=== PATIENT | female | born 1980 | race Caucasian/White ===

== ENCOUNTER → 2016-04-20 | Outpatient (CLI) | payer OTHER ==
[~2016-04-20] MED LIST: IOPAMIDOL (ISOVUE 370) 100 ML BTL IV ONE
--- NOTE | 2016-04-20 18:23 | DX ---
Hysterosalpingogram Clinical Indications: 35-year-old with infertility Technique: Following explanation of the procedure and informed consent, aseptic technique was used t o place a 5 [place] Hysterocath into the cervix. The catheter would not advance through the cervix and the balloon could not be inflated. The catheter was held in place with gentle forward pressure and S inografin was injected into the uterine cavity. Multiple spot images were obtained. The patient liza rated the procedure well. Findings: The uterus is retroverted. An equivocal filling defect in the uterus on early filling image s could be related to gravity artifact and uterine retroversion. The fallopian tubes fill normally. Contrast spills from both tubes into the peritoneal cavity. Fluoroscopy time is 1.4 minutes. Dose= 9.1 mGy. Impression: Equivocal filling defect in a retroverted uterus that could be related to artifact from g ravity, polyp or fibroid.
== END ==
LOC: FIMAGING 12:54
PROVIDERS: ATTEND Obstetrics & Gynecology
PROC: 0UH Female Reproductive System, Insertion (ICD-10-PCS; principal; 2016-04-20)
DX: N85.4 Malposition of uterus (principal); R93.8 Abnormal findings on diagnostic imaging of other specified body structures; N97.9 Female infertility, unspecified
CPT/HCPCS: Q9967

== ENCOUNTER → 2016-07-09 | Outpatient (CLI) | payer OTHER | LOC: FIMAGING 13:26 | PROVIDERS: ATTEND Obstetrics & Gynecology | DX: O09.521 Supervision of elderly multigravida, first trimester (principal); E03.9 Hypothyroidism, unspecified; Z3A.12 12 weeks gestation of pregnancy ==

== ENCOUNTER → 2016-08-31 | Outpatient (CLI) | payer OTHER | LOC: FIMAGING 08:02 | PROVIDERS: ATTEND Obstetrics & Gynecology | DX: Z36 Encounter for antenatal screening of mother (principal); O09.522 Supervision of elderly multigravida, second trimester; Z3A.20 20 weeks gestation of pregnancy ==

== ENCOUNTER 2016-12-21 07:20 | Observation (INO) | payer OTHER ==
--- NOTE | 2016-12-21 10:10 | SOAPPROG ---
SOAP Progress Note Assessment/Plan: Assessment: 36 yo G1 WF @ 36+ weeks gestation (EDC Jan 17 2017) with decreased movement. NST reactive. Plan: Reassurance given. Kick count instructions reviewed. DC home. RTC in 2 days for scheduled 36-week visit. 12/21/16 10:07 Subjective: Patient c/o decreased movement since yesterday evening. <10 kicks/hour. Objective: VSS FHR: NST is reactive, baseline 120s - Pending Discharge Pending Discharge Within 24 Hours: Yes Pending Discharge Date: 12/22/16 Pending Discharge Time: 11:00 Physical Exam - Physical Exam General Appearance: alert, no apparent distress EENT: PERRL/EOMI Neck: non-tender, supple Respiratory: lungs clear, normal breath sounds Cardiac/Chest: regular rate, rhythm Abdomen: non-tender, soft, other (gravid, S=D) Pelvic Exam: deferred Rectal: deferred Skin: normal color Extremities: normal range of motion, non-tender Neuro/Psych: alert, oriented x 3 ICD10 Worksheet Patient Problems: Problems Problem Status Onset Decreased movement Acute Third trimester fetus Acute Third trimester Acute - ICD10 Problem Qualifiers (1) Decreased movement (2) Third trimester fetus (3) Third trimester
== END 2016-12-21 08:35 | disposition home or self-care (01) ==
LOC: FLD 07:20
PROVIDERS: ADMIT Obstetrics & Gynecology Gynecology; ATTEND Obstetrics & Gynecology Gynecology
DX: O09.513 Supervision of elderly primigravida, third trimester (principal); O36.8130 Decreased fetal movements, third trimester, not applicable or unspecified; Z3A.36 36 weeks gestation of pregnancy
CPT/HCPCS: G0378

== ENCOUNTER 2017-01-23 14:26 | Inpatient (IN) | payer OTHER ==
[2017-01-23] MEDS ORDERED: LR 1,000 ML IV PRN (14:52)
[2017-01-23] MEDS ORDERED: OXYTOCIN 20 UNIT in LR 1,000 ML IV PRN (14:52)
[2017-01-23] MEDS ORDERED: EPSOM SALT 454 GM TP PRN (14:52)
[2017-01-23] MEDS ORDERED: OLIVE OIL 118 ML BTL MISC PRN (14:52)
[2017-01-23] MEDS ORDERED: TERBUTALINE SULFATE 1 MG/ML VIAL IV PRN (14:52)
--- NOTE | 2017-01-23 16:44 | OBPROG ---
Labor Progress Note Assessment/Plan: Assessment:cat 1 fhr irregular contractions q 20 minutes pain well managed pain level a 3-4 + amnisure + ferning +pooling clear fluid us to verify presentation cephalic speculum exam closed cervix noted continuous monitoring afebrile Plan:consulted dr. hood urbano on poc, cytotec q4h to start at 50mcg, discussed poc with patient and family ok with poc. patient would also like to do accupuncture in conjuction with cytotec ok with this plan 01/23/17 16:40 Subjective/Intrapartum Course: 01/23/17 16:39 patient states rom at 0200 am 01/23/2017. Clear fluid. Feeling irregular contractions. States feeling positive movement. No bleeding noted. Cat 1 fhr on monitor - SVE Dilation (cm): 0 Effacement (%): 0 Membranes: SROM Amniotic Fluid Color: Clear - Contraction Pattern Assessment Current Contraction Pattern: Irregular - FHR Assessment Quiroz FHR (bpm): 135 FHR Pattern Variability: Moderate FHR Category: 1 - Physical Exam General Appearance: WD/WN, alert, no apparent distress Respiratory: chest non-tender, lungs clear, normal breath sounds Cardiac/Chest: regular rate, rhythm Abdomen: normal bowel sounds Extremities: normal range of motion, Mora's sign (negative bilaterally) DTR- Lower Extremities: Knee (R): 1+, Knee (L): 1+ (no clonus) Skin: normal color, warm/dry Neuro/Psych: no motor/sensory deficits, alert, normal mood/affect, oriented x 3 Oxytocin Orders Assessment - Pre-Induction/Augmentation Assessment Gestational Age: 40 week(s) and 0 day(s) ICD10 Worksheet Patient Problems: Problems Problem Status Onset Decreased movement Acute Third trimester fetus Acute Third trimester Acute
[2017-01-23] MEDS ORDERED: MISOPROSTOL 100 MCG TAB PO ONE ×2 (16:45→17:00)
[2017-01-23 17:15] LABS: % IMMATURE GRANULYOCYTES 0.6 % (0.0-1.1); ABSOLUTE IMMATURE GRANULOCYTES 0.06 10^3/uL (0.00-0.10); ADD DIFF? NO; ADD MORPH? NO; ADD SCAN? NO; ATYPICAL LYMPHOCYTE FLAG 0 (0-99); FRAGMENT RBC FLAG 0 (0-99); HEMATOCRIT 39.2 % (38.0-47.0); HEMOGLOBIN 14.2 g/dL (12.6-16.3); LEFT SHIFT FLG 0 (0-99); LIPEMIA HEMOLYSIS FLAG 90 (0-99); MEAN CELL HEMOGLOBIN 33.3 pg (27.9-34.1); MEAN CELL HEMOGLOBIN CONCENTR. 36.2 g/dL (32.4-36.7); MEAN PLATELET VOLUME 9.8 fL (8.7-11.7); PLATELET CLUMPS FLAG 10 (0-99); PLATELET COUNT 236 10^3/uL (150-400); RED BLOOD CELL COUNT 4.26 10^6/uL (4.18-5.33); RED CELL DISTRIBUTION WIDTH 12.7 % (11.5-15.2)
--- NOTE | 2017-01-23 17:44 | GHP ---
[f rep st] HISTORY AND PHYSICAL DATE OF ADMISSION: 01/23/2017 HISTORY OF PRESENT ILLNESS: Patient is a 36-year-old 2, para 0, 0, A1, living 0, with an EDC of 01/17/2017. That gives the patient a gestational age of 40-6/7 weeks. The patient comes in with complaint of rupture of membranes at 2 a.m. on 01/23/2017, clear fluid. States feeling positive movement. Denies bleeding. Denies regular contractions. MEDICAL HISTORY: History of low vitamin D, on vitamin D every other day. Thyroid dysfunction, hypothyroid, on levothyroxine. History of gastrointestinal digestive difficulties, IBS, acid reflux, as well as a history of ulcers. History of frequent UTIs, pyelonephritis greater than 10 years ago. History of psychiatric difficulties with OCD as well as anxiety. Today, patient asked for a guarantee that any interventions be to the end that she not . Major accidents: Spinal injury in high school. HISTORY: Patient is AMA. Family history of blindness. Transfer of care at 29 weeks. GYNECOLOGICAL HISTORY: Patient has a history of endometriosis, history of OCP use and condoms. HSV. GYNECOLOGICAL SURGERY: HSG, laparoscopic surgery in 2009. ALLERGIES: Patient is allergic to penicillin. SOCIAL HISTORY: Patient is to [facility]. Denies drug use. Denies smoking use. PHYSICAL ASSESSMENT: GENERAL: Patient is awake, alert, oriented x3. LUNGS: Clear bilaterally. ABDOMEN: Bowel sounds are positive in all 4 quadrants. EXTREMITIES: DTRs are 1+ bilaterally. Homans sign is negative bilaterally. PELVIC: Speculum exam was done. Positive pooling, positive ferning. Negative Nitrazine. Patient has been leaking clear fluid since 2 A.M. AmniSure was completed and that was positive as well. Consulted Dr. Leyla Torres on plan of care. Will choose to do Cytotec 50 mcg once and then 25 mcg p.o. q.4 as needed. The patient states that she is GBS negative. VITAL SIGNS: Within normal limits on admission. Ultrasound was done to verify presentation. Cephalic presentation was noted. PLAN OF CARE: 1. Group B streptococcus negative. 2. Cytotec 50mcg intial dose to assist with ripening of the cervix. 3. Reassessment as needed. 4. Continuous monitoring. 5. Consult Dr. Leyla Jamroz on plan of care as needed. 6. accupuncture at patient request /[id number]/MODL MTDD
--- NOTE | 2017-01-23 17:46 | SOAPPROG ---
SOAP Progress Note Assessment/Plan: Assessment: Acupuncture Consult ordered by line up machine operator, Vanda Steinberg for labor encouragement. Patient is 41 weeks . Water broke at 2 a.m. 01.23.17. I am told by the patient she is not dilated and is ela approximately every twenty minutes. Plan: Patient is sidelined with a FITball "peanut" between her legs. Sacral points done bilateral with electric stimulation: BL 23-32 descend the qi, improve bloodflow and circulation to the uterus. R LI 4 move the qi, encourage movement R SI 3, 4 Rel[address] the spine R ST 36 boost the qi, improve energy, regulation R GB 34 encourage dilation of the cervix, relax the muscles R GB 40 x 2 support the "[place]", relax the waist, open the pelvis R GB 41 master point of the [place], relax the waist, open the pelvis R BL 65 [place]lin point for pain on the bladder meridian, decrease pain in the sacrum and pelvis L SP 6 Meeting point of the three yin (LR, KI, SP), encourage LR 3 Move the blood, reduce stress and anxiety Electric Stimulation on the following distal points: SP 6 - LI 4 ST 36 - GB 34 01/23/17 17:38 Objective: Laboratory Results 01/23/17 16:40 ICD10 Worksheet Patient Problems: Problems Problem Status Onset Decreased movement Acute Third trimester fetus Acute Third trimester Acute
[2017-01-23] MEDS ORDERED: AMMONIA AROMATIC 1 EACH AMP IH ONE (18:02)
[2017-01-23] MEDS ORDERED: TERBUTALINE SULFATE 1 MG/ML VIAL ONE (18:02)
[2017-01-23] MEDS ORDERED: OLIVE OIL 118 ML BTL ONE (18:02)
[2017-01-23] MEDS ORDERED: LIDOCAINE 1% 300 MG/30 ML SDV ONE (18:02)
[2017-01-23] MEDS ORDERED: OXYTOCIN 10 UNIT/ML VIAL ONE (18:03)
[2017-01-23] MEDS ORDERED: MISOPROSTOL 200 MCG TAB ONE (18:03)
[2017-01-23] MEDS: MISOPROSTOL 100 MCG TAB PO STA (22:00)
--- NOTE | 2017-01-24 00:53 | OBPROG ---
Labor Progress Note Assessment/Plan: Assessment:cat 1 fhr regular contractions q2-3 minutes pain well managed pain level a 7-8 tub for relaxation clear fluid continuous monitoring exam /-2 cephalic Plan:up moving, in the tub, encouraging relaxation and coping, plans for an epidural to assist with pain eventually 01/23/17 16:40 01/24/17 00:51 Subjective/Intrapartum Course: 01/23/17 16:39 patient states rom at 0200 am 01/23/2017. Clear fluid. Feeling irregular contractions. States feeling positive movement. No bleeding noted. Cat 1 fhr on monitor 01/24/17 00:49 Feeling more regular contractions . Feeling greater pain. Having difficulty with relaxation and fear. Discussed ays to assist . Will try the tub. Discussed ways to cope. Objective: 01/23/17 16:40 Patient ABO/Rh O POSITIVE 01/23/17 16:40 - SVE Membranes: SROM Amniotic Fluid Color: Clear - Contraction Pattern Assessment Current Contraction Pattern: Regular - FHR Assessment Quiroz FHR (bpm): 130 FHR Pattern Variability: Moderate FHR Category: 1 - AP Antepartum Course: hypothyroid, ama, OCD, anxiety, family history of blindness, 01/24/17 00:54 Oxytocin Orders Assessment - Pre-Induction/Augmentation Assessment Gestational Age: 40 week(s) and 0 day(s) ICD10 Worksheet Patient Problems: Problems Problem Status Onset Decreased movement Acute Third trimester fetus Acute Third trimester Acute
--- NOTE | 2017-01-24 02:55 | OBPROG ---
Labor Progress Note Assessment/Plan: Assessment:cat 1 fhr regular contractions q2-3 minutes pain well managed pain level a 7-8 different position to assist with labor support requesting an epidural for pain relief clear fluid continuous monitoring exam /- cephalic coping fair intermittant monitoring will go back to continuous with the epidural tens unit Plan:epidural for pain relief/ discussed epidural r/b/a/ 01/23/17 16:40 01/24/17 00:51 01/24/17 02:52 01/24/17 02:54 Subjective/Intrapartum Course: 01/23/17 16:39 patient states rom at 0200 am 01/23/2017. Clear fluid. Feeling irregular contractions. States feeling positive movement. No bleeding noted. Cat 1 fhr on monitor 01/24/17 00:49 Feeling more regular contractions . Feeling greater pain. Having difficulty with relaxation and fear. Discussed ays to assist . Will try the tub. Discussed ways to cope. 01/24/17 02:54 epidural for pain relief at patients request fluids and anesthesia called to assist Objective: 01/23/17 16:40 Patient ABO/Rh O POSITIVE 01/23/17 16:40 - SVE Dilation (cm): 3 Effacement (%): 90 Station: -1 Membranes: SROM Amniotic Fluid Color: Clear - Contraction Pattern Assessment Current Contraction Pattern: Regular - AP Antepartum Course: hypothyroid, ama, OCD, anxiety, family history of blindness, 01/24/17 00:54 Oxytocin Orders Assessment - Pre-Induction/Augmentation Assessment Gestational Age: 40 week(s) and 0 day(s) ICD10 Worksheet Patient Problems: Problems Problem Status Onset Decreased movement Acute Third trimester fetus Acute Third trimester Acute
[2017-01-24] MEDS ORDERED: fentaNYL 2MCG/ML/BUP 0.1% RTU 100 ML BAG EP ONE (03:23)
[2017-01-24] MEDS ORDERED: PHENYLEPHRINE HCL 100 MCG/ML SYR ONE (03:23)
[2017-01-24] MEDS ORDERED: BUPIVACAINE 0.25% 30 ML SDV ONE (03:30)
--- NOTE | 2017-01-24 03:48 | PREANESOB ---
Obstetric Pre-Anesthesia Info - General Info Proposed Procedure: epidural analgesia : 2 Para: 0 [place]: 01/23/17 Gestational Age: 40 week(s) and 0 day(s) - Labor Status Cervical Dilation per last OB SVE: 3 Station per last OB SVE: -1 Amniotic Fluid Color: Clear Anesthesia Allergies/Adverse Reactions: Allergy/AdvReac Type Severity Reaction Status Date / Time Penicillins Allergy Swelling/ne Verified 02/11/11 09:18 ck,face,thr oat tetracycline [Tetracycline] Allergy swelling Verified 02/11/11 09:18 Home Medications: Medication Instructions Recorded Acyclovir 400 mg PO 02/11/11 Levothyroxine [Synthroid 50 mcg 50 mcg PO DAILY06 01/23/17 (*)] Vit D3/Folic Acid/B2/B6/B12 1 each PO 01/23/17 [Folgard Tablet] Visit Medications: Generic Name Dose Route Start Last Admin Trade Name Freq PRN Reason Stop Dose Admin Lactated Ringer's 1,000 mls @ 0 mls/hr 01/23/17 14:52 01/24/17 03:08 Lr IV 07/22/17 14:51 1,000 mls PRN PRN Administration SEE PROTOCOL CONDITIONS Protocol Per Protocol Oxytocin 20 unit/ Lactated 1,002 mls @ 150 mls/hr 01/23/17 14:52 Ringer's IV PRN PRN Post- bleeding Ibuprofen 600 mg 01/23/17 14:52 Motrin PO 07/22/17 14:51 Q6HRS PRN post , inflammation Levothyroxine Sodium 50 mcg 01/24/17 06:00 Synthroid PO 07/23/17 05:59 DAILY AT 6AM JOVANNY Magnesium Sulfate 454 gm 01/23/17 14:52 Epsom Salt TP 07/22/17 14:51 Q1H PRN perineal discomfort Oxford Oil 118 ml 01/23/17 14:52 Sweet Oil MISC 07/22/17 14:51 ONCE PRN perineal massage Terbutaline Sulfate 0.25 mg 01/23/17 14:52 Brethine IV 07/22/17 14:51 ONCE PRN Tachysystole Discontinued Medications Generic Name Dose Route Start Last Admin Trade Name Freq PRN Reason Stop Dose Admin Ammonia (Aromatic Spirit) Confirm 01/23/17 18:02 Ammonia Aromatic Administered 01/23/17 18:03 Dose 1 each IH .STK-MED ONE Bupivacaine HCl Confirm 01/24/17 03:30 Sensorcaine 0.25% Sdv Administered 01/24/17 03:31 Dose 30 ml .ROUTE .STK-MED ONE Ephedrine Sulfate Confirm 01/23/17 18:02 Ephedrine Sulfate Administered 01/23/17 18:03 Dose 50 mg .ROUTE .STK-MED ONE Ephedrine Sulfate Confirm 01/24/17 03:23 Ephedrine Sulfate Administered 01/24/17 03:24 Dose 50 mg .ROUTE .STK-MED ONE Fentanyl/Bupivacaine HCl Confirm 01/24/17 03:23 Fentanyl/Bupivacaine/Ns 2 Mcg/Ml 0.1% (Premix Administered 01/24/17 03:24 Dose 100 ml EP .STK-MED ONE Lidocaine HCl Confirm 01/23/17 18:02 Lidocaine Hcl 1% Administered 01/23/17 18:03 Dose 300 mg .ROUTE .STK-MED ONE Misoprostol 50 mcg 01/23/17 17:00 01/23/17 17:01 Cytotec PO 01/23/17 17:01 50 mcg ONCE ONE Administration Misoprostol Confirm 01/23/17 18:03 Cytotec Administered 01/23/17 18:04 Dose 800 mcg .ROUTE .STK-MED ONE Misoprostol 50 mcg 01/23/17 21:50 01/23/17 22:00 Cytotec PO 01/23/17 21:51 50 mcg ONCE STA Administration Oxford Oil Confirm 01/23/17 18:02 Sweet Oil Administered 01/23/17 18:03 Dose 118 ml .ROUTE .STK-MED ONE Oxytocin Confirm 01/23/17 18:03 Pitocin Administered 01/23/17 18:04 Dose 40 unit .ROUTE .STK-MED ONE Phenylephrine HCl Confirm 01/24/17 03:23 Neosynephrine Administered 01/24/17 03:24 Dose 1,000 mcg .ROUTE .STK-MED ONE Terbutaline Sulfate Confirm 01/23/17 18:02 Brethine Administered 01/23/17 18:03 Dose 1 mg .ROUTE .STK-MED ONE - Vital Signs Height/Weight (Nursing): Height 170.18 cm Weight 71.668 kg - Focused Exam Neck exam: FROM Mallampati Score: Class 1 Mouth exam: normal dental/mouth exam Pulmonary: no respiratory distress Cardiovascular: regular rate and rhythym Labs: 01/23/17 16:40 Patient ABO/Rh O POSITIVE 01/23/17 16:40 - Plan Anesthetic Plan: epidural analgesia Consent Signed and on Chart: Yes Patient/Guardian Understands and Agrees to Plan: Yes
[2017-01-24] MEDS ORDERED: LR 500 ML IV SCH (04:00)
[2017-01-24] MEDS ORDERED: fentaNYL 2MCG/ML/BUP 0.1% RTU 100 ML EP SCH (04:00)
--- NOTE | 2017-01-24 04:40 | OBPROG ---
Labor Progress Note Assessment/Plan: Assessment:cat 2fhr irregular contractions 3-5 minutes apart pain well managed pain level 3 to right side to assist with pain relief and rest/ peanut ball to assist with descent requesting an epidural for pain relief clear fluid continuing vaginally continuous monitoring exam 5/100/0 cephalic able to rest now continuous monitoring Plan:expectant management of labor 01/23/17 16:40 01/24/17 00:51 01/24/17 02:52 01/24/17 02:54 01/24/17 04:37 Subjective/Intrapartum Course: 01/23/17 16:39 patient states rom at 0200 am 01/23/2017. Clear fluid. Feeling irregular contractions. States feeling positive movement. No bleeding noted. Cat 1 fhr on monitor 01/24/17 00:49 Feeling more regular contractions . Feeling greater pain. Having difficulty with relaxation and fear. Discussed ays to assist . Will try the tub. Discussed ways to cope. 01/24/17 02:54 epidural for pain relief at patients request fluids and anesthesia called to assist 01/24/17 04:36 Feeling better after epidural placement. Bolus by anesthesia and several boluses from the epidurl pump. To catch up with pain relief Objective: 01/23/17 16:40 Patient ABO/Rh O POSITIVE 01/23/17 16:40 - SVE Dilation (cm): 5 Effacement (%): 100 Station: 0 Membranes: SROM Amniotic Fluid Color: Clear - Contraction Pattern Assessment Current Contraction Pattern: Regular - AP Antepartum Course: hypothyroid, ama, OCD, anxiety, family history of blindness, 01/24/17 00:54 Oxytocin Orders Assessment - Pre-Induction/Augmentation Assessment Gestational Age: 40 week(s) and 0 day(s) ICD10 Worksheet Patient Problems: Problems Problem Status Onset Decreased movement Acute Third trimester fetus Acute Third trimester Acute
--- NOTE | 2017-01-24 06:39 | OBPROG ---
Labor Progress Note Assessment/Plan: Assessment:cat 2fhr irregular contractions 4-5 minutes apart pain well managed pain level 0 changing positions frequently to allow for chnage in cervix and descent epidural working well for pain relief clear fluid continuing vaginally continuous monitoring exam 8-9/100/0 cephalic resting comfortably continuous monitoring will need small amount of pitocin to assist with continued progress Plan:pitocin per protocol to assist with continued progress. PAtient ok with plan of care. Dr. austin called report deni 01/23/17 16:40 01/24/17 00:51 01/24/17 02:52 01/24/17 02:54 01/24/17 04:37 01/24/17 06:36 Subjective/Intrapartum Course: 01/23/17 16:39 patient states rom at 0200 am 01/23/2017. Clear fluid. Feeling irregular contractions. States feeling positive movement. No bleeding noted. Cat 1 fhr on monitor 01/24/17 00:49 Feeling more regular contractions . Feeling greater pain. Having difficulty with relaxation and fear. Discussed ays to assist . Will try the tub. Discussed ways to cope. 01/24/17 02:54 epidural for pain relief at patients request fluids and anesthesia called to assist 01/24/17 04:36 Feeling better after epidural placement. Bolus by anesthesia and several boluses from the epidurl pump. To catch up with pain relief 01/24/17 06:39 Comfortable with epidural . Ok with need for small amount of pitocin irregular contractions Objective: 01/23/17 16:40 Patient ABO/Rh O POSITIVE 01/23/17 16:40 - SVE Dilation (cm): 8, 9 Effacement (%): 100 Station: 0 Membranes: SROM Amniotic Fluid Color: Clear - Contraction Pattern Assessment Current Contraction Pattern: Regular - AP Antepartum Course: hypothyroid, ama, OCD, anxiety, family history of blindness, 01/24/17 00:54 Oxytocin Orders Assessment - Pre-Induction/Augmentation Assessment Gestational Age: 40 week(s) and 0 day(s) ICD10 Worksheet Patient Problems: Problems Problem Status Onset Decreased movement Acute Third trimester fetus Acute Third trimester Acute
[2017-01-24] MEDS ORDERED: OXYTOCIN 30 UNIT in LR 500 ML IV SCH ×2 (06:45→09:00)
[2017-01-24] MEDS ORDERED: OXYTOCIN/LR *STANDARD DOSE PROTOCOL IV SCH (07:00)
[2017-01-24] MEDS ORDERED: ACETAMINOPHEN 325 MG TAB PO PRN (08:49)
[2017-01-24] MEDS ORDERED: SIMETHICONE 80 MG TAB CHEW PO PRN (08:49)
[2017-01-24] MEDS ORDERED: HYDROCODONE/APAP 5/325 TAB PO PRN (08:49)
--- NOTE | 2017-01-24 08:57 | OBDEL ---
Info Type: Vaginal Presentation at Delivery: Vertex L&D Analgesia/Anesthesia Type: Epidural GBS+: No Intrapartum Medications: Generic Name Dose Route Start Last Admin Trade Name Freq PRN Reason Stop Dose Admin Lactated Ringer's 1,000 mls @ 0 mls/hr 01/23/17 14:52 01/24/17 03:08 Lr IV 07/22/17 14:51 1,000 mls PRN PRN Administration SEE PROTOCOL CONDITIONS Protocol Per Protocol Oxytocin 30 unit/ Lactated 503 mls @ 0 mls/hr 01/24/17 07:00 01/24/17 07:14 Ringer's IV 07/23/17 06:59 503 mls CONT JOVANNY Administration Protocol Per Protocol Discontinued Medications Generic Name Dose Route Start Last Admin Trade Name Freq PRN Reason Stop Dose Admin Misoprostol 50 mcg 01/23/17 17:00 01/23/17 17:01 Cytotec PO 01/23/17 17:01 50 mcg ONCE ONE Administration Misoprostol 50 mcg 01/23/17 21:50 01/23/17 22:00 Cytotec PO 01/23/17 21:51 50 mcg ONCE STA Administration - Hospital Course Intrapartum: 01/23/17 16:39 patient states rom at 0200 am 01/23/2017. Clear fluid. Feeling irregular contractions. States feeling positive movement. No bleeding noted. Cat 1 fhr on monitor 01/24/17 00:49 Feeling more regular contractions . Feeling greater pain. Having difficulty with relaxation and fear. Discussed ays to assist . Will try the tub. Discussed ways to cope. 01/24/17 02:54 epidural for pain relief at patients request fluids and anesthesia called to assist 01/24/17 04:36 Feeling better after epidural placement. Bolus by anesthesia and several boluses from the epidurl pump. To catch up with pain relief 01/24/17 06:39 Comfortable with epidural . Ok with need for small amount of pitocin irregular contractions Indications for Delivery: SROM Vaginal Delivery - Delivery Provider Delivery Physician/CNM: Gulshan Galo - Labor and Delivery Onset of Contractions Type: Augmented Rupture of Membranes Type: Spontaneous Amniotic Fluid Color: Clear Episiotomy: Midline Repair: 2-0, Vicryl Vaginal Sponge Count Correct: Yes Vaginal Needle Count Correct: Yes Vaginal Sweep Performed: Yes EBL: 250 Delivery Events: Nuchal Cord Delivery Comment: Vacuum-assisted vaginal delivery through right mediolateral episiotomy of viable male infant. Apgars 5 @ 1 minute and 9 @ 5 minutes. Vacuum performed for heart rate deceleration and poor maternal effort. Episiotomy was made to accommodate application of vacuum and expedient delivery of infant. Head delivered with one pull and no pop-off. Nuchal cord, tight noted at time of delivered of head (GEN). Anterior and posterior shoulder delivered without difficulty or dystocia without reduction of cord. Cord removed from neck after baby delivered. Cord was clamped and cut (3-vessels) and infant handed to [facility] for resuscitation. Placenta delivered completely and intact shortly after infant with gentle traction. Pitocin 30U IV given following delivery of placenta. RML episiotomy repaired with 2-0 Vicryl. No other lacerations noted on systematic examination of cervix, vaginal mucosa and perineum. Uterine fundus was firm with bimanual massage and Pitocin. EBL 250 mL. Good hemostasis at end of delivery. - Medications Labor Augmentation/Induction Methods Used: Pitocin Assissted Delivery Assisted Delivery Type: Vacuum Station: Outlet Pop offs (Total): 0 Pulls (Total): 1 Assisted Delivery Comment: Vacuum applied and RML episiotomy performed for heart rate deceleration ( late) during second stage. ICD10 Worksheet Patient Problems: Problems Problem Status Onset Vaginal delivery Acute Decreased movement Acute Third trimester fetus Acute Third trimester Acute - ICD10 Problem Qualifiers (1) Vaginal delivery
[2017-01-24] MEDS: IBUPROFEN 600 MG TAB PO PRN ×3 (09:07→20:53)
--- NOTE | 2017-01-24 10:19 | POSTANESTH ---
Post Anesthetic Evaluation Cardiovascular Status: Normal, Stable Respiratory Status: Normal, Stable Level of Consciousness/Mental Status: Can Participate in Eval Pain Control: Adequate, Prn Tx Ordered Nausea/Vomiting Control: Adequate, Prn Tx Ordered Complications Possibly Related to Anesthesia: None Noted
[2017-01-24] MEDS: LEVOTHYROXINE 50 MCG TAB PO SCH (11:19)
[2017-01-24] MEDS: ACYCLOVIR 200 MG CAP PO SCH ×2 (11:30→20:53)
[2017-01-24] MEDS: DOCUSATE SODIUM 100 MG CAP PO PRN (20:54)
[2017-01-25] MEDS: IBUPROFEN 600 MG TAB PO PRN ×4 (02:44→22:11)
[2017-01-25] MEDS: LEVOTHYROXINE 50 MCG TAB PO SCH (06:23)
--- NOTE | 2017-01-25 08:23 | OBPP ---
Progress Note Assessment/Plan: Assessment:nipples intact well without difficulty ff@u scant rubra lochia perineum approximated minimal swelling ice x 24h heat after discussed with patient pain well managed denies pih symptoms Plan:pp day expectant management 01/23/17 16:40 01/24/17 00:51 01/24/17 02:52 01/24/17 02:54 01/24/17 04:37 01/24/17 06:36 01/25/17 08:20 Subjective/ Course: 01/25/17 08:20 Doing well. Denies difficulties. Pain well managed. Objective: 01/23/17 16:40 Patient ABO/Rh O POSITIVE 01/23/17 16:40 Temp Pulse Resp BP Pulse Ox 36.6 C 75 16 122/76 H 95 01/24/17 20:00 01/24/17 20:00 01/24/17 20:00 01/24/17 20:00 01/24/17 20:00 Uterine Position/Fundal Height: At Umbilicus Uterine Tone: Firm Physical Exam - Physical Exam General Appearance: WD/WN, alert, no apparent distress Abdomen: other (ff@u/ scant rubnra lochia) Extremities: Mora's sign (negative bilaterally) DTR- Lower Extremities: Knee (R): 1+, Knee (L): 1+ (no clonus) Skin: normal color, warm/dry Neuro/Psych: no motor/sensory deficits, alert, normal mood/affect, oriented x 3
[2017-01-25] MEDS: ACYCLOVIR 200 MG CAP PO SCH ×2 (11:24→20:39)
[2017-01-25] MEDS: DOCUSATE SODIUM 100 MG CAP PO PRN (11:24)
[2017-01-25 19:54] VITALS: O2SAT 96
[2017-01-25] MEDS: MISOPROSTOL 100 MCG TAB PO STA (22:56)
[2017-01-26] MEDS: IBUPROFEN 600 MG TAB PO PRN ×2 (03:51→10:09)
[2017-01-26] MEDS: LEVOTHYROXINE 50 MCG TAB PO SCH (06:48)
[2017-01-26] MEDS: DOCUSATE SODIUM 100 MG CAP PO PRN (10:09)
[2017-01-26] MEDS: ACYCLOVIR 200 MG CAP PO SCH (10:09)
[2017-01-26 10:44] VITALS: BP 116/79; PULSE 68; RESP 14; TEMP 97.5
--- NOTE | 2017-01-26 17:59 | OBPP ---
Progress Note Assessment/Plan: Assessment: 36-year-old WF PPD#2 doing well. Plan: DC home today. 01/26/17 17:57 Subjective/ Course: 01/25/17 08:20 Doing well. Denies difficulties. Pain well managed. 01/26/17 17:57 Patient reports minimal pain at episiotomy site and minimal cramping. She denies significant lochia. She is . She desires DC home today. Objective: 01/23/17 16:40 Patient ABO/Rh O POSITIVE 01/23/17 16:40 Temp Pulse Resp BP Pulse Ox 36.4 C 68 14 116/79 96 01/26/17 08:00 01/26/17 08:00 01/26/17 08:00 01/26/17 08:00 01/26/17 08:00 Uterine Position/Fundal Height: Umbilicus -2 Uterine Tone: Firm Physical Exam - Physical Exam Neck: supple Respiratory: lungs clear, normal breath sounds Cardiac/Chest: regular rate, rhythm Abdomen: normal bowel sounds, non-tender, soft Extremities: normal range of motion, non-tender DTR- Lower Extremities: Knee (R): 1+, Knee (L): 1+ Skin: normal color, warm/dry Neuro/Psych: no motor/sensory deficits, alert, normal mood/affect, oriented x 3
--- NOTE | 2017-01-26 18:00 | OBGCSDC ---
General Delivery Information - General Info : 2 Para: 1 Abortions: 0 Type: Vaginal L&D Analgesia/Anesthesia Type: Epidural Admission Date: 01/23/17 Labs: Patient ABO/Rh O POSITIVE 01/23/17 16:40 Hct 39.2 % (38.0-47.0) 01/23/17 16:40 - Hospital Course Antepartum: hypothyroid, ama, OCD, anxiety, family history of blindness, 01/24/17 00:54 Intrapartum: 01/23/17 16:39 patient states rom at 0200 am 01/23/2017. Clear fluid. Feeling irregular contractions. States feeling positive movement. No bleeding noted. Cat 1 fhr on monitor 01/24/17 00:49 Feeling more regular contractions . Feeling greater pain. Having difficulty with relaxation and fear. Discussed ays to assist . Will try the tub. Discussed ways to cope. 01/24/17 02:54 epidural for pain relief at patients request fluids and anesthesia called to assist 01/24/17 04:36 Feeling better after epidural placement. Bolus by anesthesia and several boluses from the epidurl pump. To catch up with pain relief 01/24/17 06:39 Comfortable with epidural . Ok with need for small amount of pitocin irregular contractions : 01/25/17 08:20 Doing well. Denies difficulties. Pain well managed. 01/26/17 17:57 Patient reports minimal pain at episiotomy site and minimal cramping. She denies significant lochia. She is . She desires DC home today. Vaginal - Delivery Provider Delivery Physician/CNM: Gulshan Galo - Diagnosis Labor: Augmented Rupture of Membranes Type: Spontaneous Amniotic Fluid Color: Clear Episiotomy: Midline Repair: 2-0, Vicryl Delivery Events: Nuchal Cord - Procedures Assisted Delivery Type: Vacuum - Delivery EBL: 250 Data Quiroz Delivery Date: 01/24/17 Delivery Time: 08:31 [place]: 01/23/17 Gestational Age: 40 week(s) and 3 day(s) Sex of Infant: Male Weight (gm): 3088 kg Score (1 Min): 5 Score (5 Min): 9 Discharge Information - Discharge Information Condition: Good Instruction/Follow Up: Four Weeks, Six Weeks
== END 2017-01-26 14:00 | disposition home or self-care (01) | DRG 775 ==
LOC: OBSVTOIN 14:26 → FLD 14:26 → FOB 01-24 13:49
PROVIDERS: ADMIT Advanced Practice Midwife; ATTEND Obstetrics & Gynecology Gynecology
PROC: 0W8NXZZ Division of Female Perineum, External Approach (ICD-10-PCS; principal; 2017-01-23)
PROC: 3E0P7GC Introduction of Other Therapeutic Substance into Female Reproductive, Via Natural or Artificial Opening (ICD-10-PCS; principal; 2017-01-23)
PROC: 10D07Z6 Extraction of Products of Conception, Vacuum, Via Natural or Artificial Opening (ICD-10-PCS; principal; 2017-01-23)
DX: O48.0 Post-term pregnancy (principal); O76 Abnormality in fetal heart rate and rhythm complicating labor and delivery; O69.1XX0 Labor and delivery complicated by cord around neck, with compression, not applicable or unspecified; O99.284 Endocrine, nutritional and metabolic diseases complicating childbirth; E03.9 Hypothyroidism, unspecified; O99.344 Other mental disorders complicating childbirth; F41.9 Anxiety disorder, unspecified; Z87.440 Personal history of urinary (tract) infections; Z3A.40 40 weeks gestation of pregnancy; Z37.0 Single live birth
CPT/HCPCS: J2370; J3105

== ENCOUNTER → 2017-03-03 | Outpatient (CLI) | payer OTHER | LOC: FLACT 12:47 | PROVIDERS: ATTEND Obstetrics & Gynecology Gynecology | DX: O92.79 Other disorders of lactation (principal) | CPT/HCPCS: G0463 ==

== ENCOUNTER 2017-12-30 12:24 | Emergency (ER) | payer OTHER ==
[2017-12-30] MEDS ORDERED: NS 1,000 ML IV ONE (13:13)
[2017-12-30] MEDS ORDERED: NITROFURANTOIN MACROBID 100 MG CAP PO ONE (13:23)
--- NOTE | 2017-12-30 13:23 | EDPHY ---
H & P Time Seen by Provider: 12/30/17 12:58 HPI/ROS: HPI Medication reaction. 37-year-old female by private vehicle. This patient started taking Bactrim yesterday for as treatment for a urinary tract infection. She reports that hours after taking this medication she started having aching in her joints and a cramping sensation in her lower extremities. She has an allergy to penicillin which occurred when she was 16. This included rash and hives. She denies any other associated signs or symptoms. No other aggravating or alleviating factors. She is currently breast-feeding. She has not been exercising vigorously lately. No other complaints. ROS: Constitutional: No fever, no chills. No weakness. Eyes: No discharge. No changes in vision. ENT: No sore throat. No nasal congestion or rhinorrhea. Respiratory: No cough. No shortness of breath. Cardiac: No chest pain, no palpitations. Gastrointestinal: No abdominal pain, no vomiting, no diarrhea. Genitourinary: No hematuria. No dysuria or increased frequency with urination. Musculoskeletal: No back pain. No neck pain. As above. Skin: No rashes. Neurological: No headache. No focal weakness or altered sensation. Past medical history: Hypothyroid, stomach ulcers, anxiety, irritable bowel syndrome, endometriosis, HSP. Social history: Nonsmoker. Currently here by herself. No alcohol. Physical Exam: General Appearance: Alert, no distress. This patient is responding to questions appropriately and in full sentences. This patient appears well- hydrated and well-nourished. Eyes: Pupils equal and round no pallor or injection. No lid edema, erythema or injection. Respiratory: There are no retractions, lungs are clear to auscultation with good air movement bilaterally. Cardiovascular: Regular rate and rhythm. No murmur. Gastrointestinal: Abdomen is soft and nontender, no masses, bowel sounds normal. No focal tenderness at McBurney's point. No Guerrero sign. Neurological: Motor sensory function is grossly intact. Cranial nerves are normal. Gait is normal. Skin: Warm and dry, no rashes. Musculoskeletal: Neck is supple and nontender. Extremities are symmetrical. All joints range without pain or impingement. Muscle compartments of the lower extremities are soft. Psychiatric: No agitation. No depression. Database: EKG: Imaging: Procedures: Emergency department course: Triage vital signs reviewed and are normal. IV placed from triage. The patient will be given 500 cc to a L of IV normal secondary to dehydration. Her electrolytes will be checked. I explained we would change her antibiotic as well. She will be started on nitrofurantoin 100 mg in the emergency department for treatment of her urinary tract infection. 1:50 p.m., patient re-evaluated. Basic metabolic panel results discussed. Electrolytes are unremarkable. Creatinine is slightly elevated. I discussed this with the patient. I explained that she needed to keep herself well hydrated and have her kidney function recheck next week by her primary care physician. At this time she is feeling better after a L of IV normal saline. She does feel comfortable going home. She is up and ambulatory under her own power. As noted above, I will prescribe nitrofurantoin 100 mg twice daily over 5 days for treatment of her urinary tract infection. She was given a dose in the emergency department. Return to emergency department precautions reviewed with her at all of her questions were answered. She was discharged from the emergency department in good condition. Differential Diagnosis: The differential diagnosis on this patient includes but is not limited to hypocalcemia, other electrolyte abnormality, medication reaction. Anaphylaxis, rhabdomyolysis unlikely. This represents a partial list of diagnoses considered. These considerations are based on history, physical exam, past history, reassessment and diagnostic testing. Smoking Status: Never smoked Constitutional: Initial Vital Signs Temperature (C) 37.1 C 12/30/17 12:27 Heart Rate 82 12/30/17 12:27 Respiratory Rate 16 12/30/17 12:27 Blood Pressure 119/73 12/30/17 12:27 O2 Sat (%) 94 12/30/17 12:27 O2 Delivery Mode Room Air Allergies/Adverse Reactions: Penicillins Allergy (Verified 12/30/17 12:26) Swelling/neck,face,throat tetracycline [Tetracycline] Allergy (Verified 12/30/17 12:26) swelling Home Medications: Medication Instructions Recorded Acyclovir 400 mg PO 02/11/11 Levothyroxine [Synthroid 50 mcg 50 mcg PO DAILY06 01/23/17 (*)] Vit D3/Folic Acid/B2/B6/B12 1 each PO 01/23/17 [Folgard Tablet] Acyclovir [Zovirax 200 mg (*)] 200 mg PO BID cap 01/26/17 Ibuprofen [Motrin (*)] 600 mg PO Q6HRS PRN tab 01/26/17 Levothyroxine [Synthroid 50 mcg 50 mcg PO DAILY AT 6AM tab 01/26/17 (*)] Nitrofurantoin Monohyd/M-Cryst 100 mg PO BID #10 capsule 12/30/17 [Macrobid 100 mg Capsule] Medical Decision Making - Data Points Laboratory Results: Laboratory Results 12/30/17 12:42 12/30/17 12:42 Sodium 139 mEq/L mEq/L (135-145) Potassium 4.0 mEq/L mEq/L (3.3-5.0) Chloride 105 mEq/L mEq/L (97-110) Carbon Dioxide 23 mEq/l mEq/l (22-31) Anion Gap 11 mEq/L mEq/L (6-14) BUN 16 mg/dL mg/dL (7-23) Creatinine 1.1 mg/dL H mg/dL (0.6-1.0) Estimated GFR 55 Glucose 82 mg/dL mg/dL (70-100) Calcium 9.6 mg/dL mg/dL (8.5-10.4) Creatine Kinase 39 IU/L IU/L (0-156) Medications Given: Discontinued Medications Sodium Chloride (Ns) 1,000 mls @ 0 mls/hr IV EDNOW ONE; Wide Open PRN Reason: Protocol Stop: 12/30/17 13:14 Last Admin: 12/30/17 13:29 Dose: 1,000 mls Departure - Departure Disposition: Home, Routine, Self-Care Clinical Impression: Medication reaction, Dehydration, Renal insufficiency Condition: Serious Instructions: Dehydration (ED), Antibiotic Medication Allergy (ED) Additional Instructions: Read and follow provided instructions. Follow-up with your primary care physician in the next 5 days to 1 week for re- evaluation and repeat of your creatinine level which is a measure of your kidney function as discussed. Take new antibiotic as prescribed through entire course of treatment. Keep well hydrated. Return to the emergency department for worsening symptoms or other serious concerns. Referrals: NONE *PRIMARY CARE P,. [Primary Care Provider] - As per Instructions Prescriptions: Nitrofurantoin Monohyd/M-Cryst [Macrobid 100 mg Capsule] 100 mg PO BID #10 capsule
[2017-12-30 13:34] LABS: CREATINE KINASE 39 IU/L (0-156)
[2017-12-30 14:03] VITALS: BP 109/55
== END 2017-12-30 14:09 | disposition home or self-care (01) ==
DX: T88.7XXA Unspecified adverse effect of drug or medicament, initial encounter (principal); E86.0 Dehydration; N28.9 Disorder of kidney and ureter, unspecified